=== PATIENT | female | born 1995 ===

== ENCOUNTER 2023-03-14 06:54 | Inpatient (IN) | payer BC ==
[2023-03-14 07:24] VITALS: BMI 29.0
[2023-03-14] MEDS ORDERED: Methylergonovine 0.2 MG/ML VIAL IM PRN (07:33)
[2023-03-14] MEDS ORDERED: Misoprostol 200 MCG TAB PR PRN (07:33)
[2023-03-14] MEDS ORDERED: Zolpidem Tartrate 5 MG TAB PO PRN (07:33)
[2023-03-14] MEDS ORDERED: Promethazine HCl 25 MG/ML VIAL IM PRN ×2 (07:33→09:30)
[2023-03-14] MEDS ORDERED: Diphenoxylate HCl/Atropine Tablet PO PRN (07:33)
[2023-03-14] MEDS ORDERED: Docusate 100 MG CAP PO PRN (07:33)
[2023-03-14] MEDS ORDERED: Carboprost 250 MCG/ML AMP IM PRN (07:33)
[2023-03-14] MEDS ORDERED: Acetaminophen 500 MG TAB PO PRN (07:33)
[2023-03-14] MEDS ORDERED: Ondansetron PF 4 MG/2 ML Vial IVP PRN ×2 (07:33→09:30)
[2023-03-14] MEDS ORDERED: Lidocaine 1% (PF) 30 ML VIAL SC PRN (07:33)
[2023-03-14] MEDS ORDERED: hydrALAZINE 20 MG/ML VIAL SLOW IVP PRN ×2 (07:33→13:23)
[2023-03-14] MEDS ORDERED: Oxytocin 30 units/NS 500 ML 500 ML IV SCH ×2 (07:45→13:23)
[2023-03-14] MEDS ORDERED: Lactated Ringer's 1,000 ML IV SCH (07:45)
[2023-03-14] MEDS ORDERED: fentaNYL/Ropivacaine Epidural 100 ML ONE (07:51)
[2023-03-14 07:53] LABS: Hematocrit 33.9 % (34.9-44.5); Hemoglobin 11.3 g/dL (12.0-15.5); Mean Corpuscular HGB CONC 33.3 g/dL (32.0-36.0); Mean Corpuscular Hemoglobin 29.1 pg (27.0-33.0); Mean Corpuscular Volume 87.4 fl (81.6-98.3); Mean Platelet Volume 11.8 fl (7.4-10.4); Platelet Count 209 10x3/uL (150-450); RBC Distribution Width 12.5 % (11.5-14.5); Red Blood Cell (RBC) Count 3.88 10x6/uL (3.90-5.03); White Blood Cell (WBC) Count 11.8 10x3/uL (3.5-10.5)
[2023-03-14] MEDS ORDERED: Bupivacaine 0.25% HCL 30 ML VIAL ONE (08:00)
[2023-03-14 08:27] LABS: Syphilis Antibody Nonreactive (Nonreactive)
[2023-03-14 09:04] LABS: HBSAg Index 0.88 S/CO (0-0.99); Hep B Surf Ag - L&D Non-Reactive S/CO (NonReactive)
[2023-03-14] MEDS ORDERED: Communication Order-Pharmacy FS SCH (09:30)
[2023-03-14] MEDS ORDERED: fentaNYL 2 mcg/Ropivacaine 0.2% Epidural 100 ML CADD EPIDURAL SCH (09:30)
[2023-03-14] MEDS ORDERED: Moisturizing Cream (Eucerin) 113 GM JAR TOP PRN (09:30)
[2023-03-14] MEDS ORDERED: diphenhydrAMINE 50 MG/ML VIAL IVP PRN (09:30)
[2023-03-14] MEDS ORDERED: Lactated Ringer's 500 ML IV PRN (09:30)
[2023-03-14] MEDS ORDERED: Acetaminophen 325 MG TAB PO PRN (09:30)
[2023-03-14] MEDS ORDERED: Naloxone HCl 0.4 mg/ml Vial IVP PRN ×2 (09:30)
[2023-03-14] MEDS ORDERED: ePHEDrine Sulfate 50 MG/10 ML VIAL SLOW IVP PRN (09:30)
[2023-03-14] MEDS ORDERED: Benzocaine-Menthol 82.5 ML CAN TOP PRN (13:23)
[2023-03-14] MEDS ORDERED: Milk Of Magnesia 30 ML UDCUP PO PRN (13:23)
[2023-03-14] MEDS ORDERED: Bisacodyl 10 MG SUPP PR PRN (13:23)
[2023-03-14] MEDS ORDERED: Boostrix 0.5 ML (Tdap) VIAL (>/=7 yrs of age) IM ONE (13:23)
[2023-03-14] MEDS ORDERED: Lanolin Ointment 7 GM TUBE TOP PRN (13:23)
[2023-03-14] MEDS ORDERED: Misoprostol 200 MCG TAB VAG PRN (13:23)
[2023-03-14] MEDS ORDERED: Docusate 100 MG CAP PO SCH (13:30)
[2023-03-14] MEDS ORDERED: Prenatal Vitamin 1 TAB PO SCH (13:30)
[2023-03-14] MEDS: Ibuprofen 800 MG TAB PO SCH ×2 (14:39→21:56)
[2023-03-14] MEDS: Ferrous Sulfate 325 MG TAB PO SCH (17:03)
[2023-03-14] MEDS: Docusate 100 MG CAP PO SCH (21:56)
[2023-03-15] MEDS ORDERED: Witch Hazel-Glycerin 1 EACH JAR TOP PRN (02:10)
[2023-03-15] MEDS: Ibuprofen 800 MG TAB PO SCH ×2 (05:53→13:35)
[2023-03-15] MEDS: Docusate 100 MG CAP PO SCH (08:32)
[2023-03-15] MEDS: Ferrous Sulfate 325 MG TAB PO SCH (08:35)
[2023-03-15] MEDS ORDERED: Prenatal Vitamin 1 TAB PO SCH (09:00)
[2023-03-15 11:32] VITALS: BP 121/53; TEMP 98.9
== END 2023-03-15 14:45 | disposition home or self-care (01) | DRG 807 ==
LOC: CSHLD/OP 06:54 → CSHLD 07:38 → CSHPP 13:35
PROVIDERS: ADMIT Obstetrics & Gynecology; ATTEND Obstetrics & Gynecology
PROC: 10E0XZZ Delivery of Products of Conception, External Approach (ICD-10-PCS; principal; 2023-03-14)
PROC: 0HQ9XZZ Repair Perineum Skin, External Approach (ICD-10-PCS; 2023-03-14)
PROC: 3E0234Z Introduction of Serum, Toxoid and Vaccine into Muscle, Percutaneous Approach (ICD-10-PCS; 2023-03-14)
DX: O36.0130 Maternal care for anti-D [Rh] antibodies, third trimester, not applicable or unspecified (principal); Z37.0 Single live birth; Z3A.39 39 weeks gestation of pregnancy; O70.0 First degree perineal laceration during delivery
CPT/HCPCS: 36415; 51702; 85027; 85461; 86780; 86850; 86870; 86900; 86901; 87340; 90384; 96372; 99285; S0020